=== PATIENT | male | born 1940 | race Caucasian/White ===

== ENCOUNTER → 2021-01-13 | Outpatient (CLI) | payer MEDICARE, OTHER ==
[~2021-01-13] MED LIST: TAMS.4ER PO
== END | disposition home or self-care (01) ==
LOC: LAB 14:45 → LAB SHORT 14:45
DX: D04.4 Carcinoma in situ of skin of scalp and neck (principal); L11.9 Acantholytic disorder, unspecified; L82.1 Other seborrheic keratosis
CPT/HCPCS: 88305

== ENCOUNTER → 2021-02-24 | Outpatient (CLI) | payer MEDICARE, OTHER | LOC: LAB SHORT 15:39 → LAB 15:39 | DX: D48.5 Neoplasm of uncertain behavior of skin (principal); L57.0 Actinic keratosis; D23.39 Other benign neoplasm of skin of other parts of face; C44.311 Basal cell carcinoma of skin of nose; C44.319 Basal cell carcinoma of skin of other parts of face; Z88.0 Allergy status to penicillin; Z91.013 Allergy to seafood | CPT/HCPCS: 88305 ==

== ENCOUNTER → 2021-04-22 | Outpatient (CLI) | payer MEDICARE, OTHER | LOC: LAB SHORT 15:41 → LAB 15:41 | DX: D48.5 Neoplasm of uncertain behavior of skin (principal); Z88.0 Allergy status to penicillin; Z91.013 Allergy to seafood | CPT/HCPCS: 88305 ==

== ENCOUNTER → 2021-10-08 | Outpatient (CLI) | payer MEDICARE, OTHER | END | disposition home or self-care (01) | LOC: LAB SHORT 11:08 | DX: L57.0 Actinic keratosis (principal) | CPT/HCPCS: 88305 ==

== ENCOUNTER → 2022-01-01 | Outpatient (CLI) | payer MEDICARE, OTHER | END | disposition home or self-care (01) | LOC: LAB SHORT 14:54 → PLD 14:54 | DX: C44.41 Basal cell carcinoma of skin of scalp and neck (principal); L57.0 Actinic keratosis | CPT/HCPCS: 88305; 88312 ==